=== PATIENT | male | born 1985 | race African-American/Black ===

== ENCOUNTER 2023-05-01 08:18 | Outpatient (CLI) | payer MEDICAID, SELFPAY ==
[2023-05-01 13:34] LABS: Albumin* 4.4 g/dL (3.3-5.0); Chloride* 104 mmol/L (96-114); Potassium* 4.5 mmol/L (3.6-5.1); Sodium* 140 mmol/L (135-149)
[2023-05-01 13:36] LABS: Bilirubin Total* 0.8 mg/dL (0.1-1.5); Carbon Dioxide* 26 mmol/L (20-32); Cholesterol* 209 mg/dL (90-199); Creatinine* 0.9 mg/dL (0.5-1.5); Estimated Glomerular Filt Rate 114 ml/min; Total Protein* 7.4 g/dL (6.0-8.3)
[2023-05-01 13:37] LABS: Alanine Aminotransferase* 27 U/L (4-50); Alkaline Phosphatase* 70 U/L (40-150); Aspartate Amino Transferase* 27 U/L (12-35); Blood Urea Nitrogen* 10 mg/dL (5-24); Calcium* 9.8 mg/dL (8.4-10.6); Glucose* 95 mg/dL (60-115); HDL Cholesterol* 37 mg/dL (>=40); LDL Cholesterol Calculated 157 mg/dL (<100); Triglycerides* 76 mg/dL (40-149)
[2023-05-01 13:54] LABS: Vitamin D 25 Hydroxy* 58 ng/mL (30-80)
[2023-05-01 14:28] LABS: Vitamin B12* 592 pg/mL (243-894)
[2023-05-01 14:41] LABS: Free T4 Free Thyroxine* 0.87 ng/dL (0.70-1.85)
== END 2023-05-01 08:19 | disposition home or self-care (01) ==
PROVIDERS: PCP Physician Assistant Medical; Visit Provider Physician Assistant Medical
DX: Z00.00 Encounter for general adult medical examination without abnormal findings (principal); E53.8 Deficiency of other specified B group vitamins; E78.5 Hyperlipidemia, unspecified; R79.89 Other specified abnormal findings of blood chemistry
CPT/HCPCS: 80053; 80061; 82306; 82607; 84439; 84443

== ENCOUNTER 2023-07-23 13:52 | Outpatient (CLI) | payer MEDICAID, SELFPAY | END 2023-07-23 13:53 | disposition home or self-care (01) | LOC: NFLDREF 07-24 07:58 | PROVIDERS: PCP Physician Assistant Medical; Referring Provider Physician Assistant Medical; Visit Provider Physician Assistant Medical | DX: E03.8 Other specified hypothyroidism (principal) | CPT/HCPCS: 84443 ==

== ENCOUNTER 2024-07-02 11:30 | Outpatient (CLI) | payer MEDICAID, SELFPAY | END 2024-07-02 11:31 | disposition home or self-care (01) | LOC: NFLDREF 07-03 09:37 | PROVIDERS: PCP Physician Assistant Medical; Referring Provider Physician Assistant Medical; Visit Provider Physician Assistant Medical | DX: E03.8 Other specified hypothyroidism (principal); R79.89 Other specified abnormal findings of blood chemistry; E53.8 Deficiency of other specified B group vitamins; E78.2 Mixed hyperlipidemia | CPT/HCPCS: 80061; 82306; 82607; 82728; 84443 ==

== ENCOUNTER 2024-12-29 13:47 | Outpatient (RCR) | payer MEDICAID, SELFPAY ==
--- NOTE | 2024-12-29 15:02 | PT.OPE ---
PT [facility] PT [facility] Eval Start: 12/29/24 10:58 Freq: Status: Active Protocol: Document 12/29/24 15:00 CJT (Rec: 12/29/24 15:01 CJT [id number]) E-signed By Jorge A Pryor PT Physical Therapy Outpatient Evaluation Insurance Information Recert Due Date 03/29/25 Insurance Name Medicaid,[employer] Medical Diagnosis Back Pain Treating Diagnosis Low back pain Referring Marielena Frausto [employer] Subjective Preferred Name Ha Subjective Pt presents with complaints of low back pain ongoing for past 3-4 days. Denies injury. 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 Pts pain is made worse with transfers from sitting to standing position. Pt denies radiating pain into his legs. Some tightness noted in his low back with forward flexion. Pt notes that he tried some exercises this morning and already is feeling better. Demonstrates standing lateral trunk flexion, variation of Child's pose. Pain Comments Average: Best: 0/10 Worst: 5/10 Date of Last Physician Visit 12/28/24 Current Work Status [employer] Occupation otr tanker truck driver Precautions Therapy Limitations/Systems Review Not Limited Objective Other/Pertinent Objective Lumbar ROM Extension - no limitations, some discomfort in low back Flexion - unable to reach toes without bending knees. R/L Side Bend - no limitations R/L Rotation - no limitations R Hip ROM Flexion - 120 IR/ER - 25/25 L Hip ROM Flexion - 120 IR/ER - 25/25 R Hip Strength Flexion - 5/5 MMT Abduction - 4+/5 MMT Adduction - 5/5 MMT IR - 5/5 MMT ER - 5/5 MMT Extension - 4+/5 MMT L Hip Strength Flexion - 5/5 MMT Abduction - 4+/5 MMT Adduction - 5/5 MMT IR - 5/5 MMT ER - 5/5 MMT Extension - 4+/5 MMT R knee Extension - 5/5 MMT R Knee Flexion - 4+/5 MMT L knee Extension - 5/5 MMT L knee Flexion - 4+/5 MMT R ankle DF - 5/5 MMT L ankle DF - 5/5 MMT Palpation: pt reports pain/ tenderness with palpation to L >R lumbar paraspinals Gait: no deviations noted DTRs: 2+ patellar and Achilles tendon bilaterally Special Testing Slump: positive R SLR: negative FADIR: negative FRANCISCO: negative Yael's: negative Piriformis: negative Hamstring: positive for tightness bialterally Pelvis: level Assessment Assessment/Impression Ha is a very pleasant 39 year old Male who presents to our clinic for evaluation and treatment of low back pain. Pts pain likely caused by excessive time spent in sitting (up to 10 hours daily in vehicle) while working. Pt is very tight in L>R lumbar paraspinals and experiencing pain with palpation to these muscles. Pt also notes increased pain when lumbar paraspinals are activated with activities including bending and sit to stand transfers. I was very clear with Adbi today that sitting in his car for 10 hours daily will gradually cause strain to tissues in his low back, and he must find time to take breaks and stand, stretch, or even change positions slightly to help reduce his pain. The nature of the pts condition was explained and all questions were answered to the pts satisfaction. Skilled PT services are medically necessary to address deficits and return patient to highest level of function. Recommend physical therapy sessions 1-2/ week for 4-6 weeks. Pt agrees with this plan. Printout of HEP was given for I completion and pt gives verbal understanding of each exercise . Primary Functional Limitations Sitting, transfers, bending Plan of Care Rehabilitation Potential Good Physical Therapy Goals STG - To be completed in 2-3 weeks: 1. Pt will report reduction in back pain by factor of 2 so that they may perform all ADLs with tolerable level of pain. 2. Pt will demonstrate ability to perform pelvic tilt with good coordination as indication of appropriate firing of pelvic and lumbar stabilizing muscles to provide greater support for pelvis and lumbar spine. 3. Pt will demonstrate 5/5 MMT for all LE motions without reproduction of pain to provide greater support to pelvis and lumbar spine. 4. Pt will report ability to tolerate 30+ minutes of sitting/standing so that they may shop for groceries at store/sit for meetings at work . LTG - To be completed in 8-12 weeks: 1. Pt to be I with HEP so that they may I manage progression of symptoms. 2. Pt will report ability to sleep through the night without waking due to pain so that they may wake well rested with reduced mental fatigue during working hours. 3. 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 4. Pt will demonstrate negative slump test, SLR, Spurling's compression as indication of reduced pressure on spinal cord and or exiting nerve roots. Treatment Plan/Direct Interventions Dry Needling,Electrical Stimulation,Heat,Ice/Cold/ Vasopneumatic,Joint Mobilization,Manual Therapy, Neuromuscular Re-ed,Self-Care/ Home Management,Therapeutic Activities,Therapeutic Exercises Frequency/Duration 1-2/week for 4-6 weeks Patient Will Be Discharged From Therapy Completion of LTG(s),Skills Plateau,Independent w/HEP, Independently Progressing Evaluation Billing Untimed Code Treatment Minutes 30 PT Eval No Charge No Complexity Low Certification Information Initial Certification Date 12/29/24 Ending Certification Date 03/29/25 Provider Signature Required Yes Provider Signature Shows Agreement With POC & Medical Necessity Physician NPI Number Write NPI# Here Physician Comment/Change : Physician Signature & Date Requested Please Sign/Date Here
== END 2025-03-17 07:50 | disposition home or self-care (01) ==
PROVIDERS: PCP Physician Assistant Medical; Visit Provider Nurse Practitioner Family
DX: M54.50 Low back pain, unspecified (principal); Z51.89 Encounter for other specified aftercare
CPT/HCPCS: 97110; 97140; 97161